=== PATIENT | female | born 1985 | race Two or more races ===

== ENCOUNTER 2019-10-04 10:13 | Inpatient (IN) | payer OTHER ==
[~2019-10-04] VITALS: Ht 167.6 cm; Wt 108.0 kg
[2019-10-04] MEDS ORDERED: NEURONTIN300 MG PO (11:07)
== END 2019-10-08 11:19 | disposition home or self-care (01) | DRG 384 ==
LOC: ER 10:13 → SEC-K 19:13 → MEDI 19:13 → MEDJ 21:59 → MEDI 22:07 → MEDJ 10-07 19:47
PROVIDERS: ADMIT Internal Medicine Cardiovascular Disease
PROC: BW40ZZZ Ultrasonography of Abdomen (ICD-10-PCS; principal; 2019-10-04)
PROC: 8E0ZXY6 Isolation (ICD-10-PCS; 2019-10-04)
DX: K25.3 Acute gastric ulcer without hemorrhage or perforation (principal); J44.1 Chronic obstructive pulmonary disease with (acute) exacerbation; J45.21 Mild intermittent asthma with (acute) exacerbation; K52.89 Other specified noninfective gastroenteritis and colitis; I10 Essential (primary) hypertension; E66.09 Other obesity due to excess calories; E11.9 Type 2 diabetes mellitus without complications; Z79.4 Long term (current) use of insulin